=== PATIENT | male | born 1965 | race African-American/Black ===

== ENCOUNTER 2019-12-31 03:18 | Emergency (ER) | payer MEDICAID ==
[~2019-12-31] VITALS: Ht 180.3 cm; Wt 91.0 kg
[2019-12-31] MEDS ORDERED: ONDANSETRON HCL 4MG/2ML INJ IV STA (04:08)
[2019-12-31] MEDS ORDERED: SODIUM CHLORIDE 0.9% 1,000 ML IV ONE (04:08)
[2019-12-31 04:47] LABS: BASOPHILS % 1.2 % (0.0-2.0); EOSINOPHILS % 4.4 % (0.0-5.0); HEMATOCRIT. 43.9 % (42.0-52.0); HEMOGLOBIN. 14.8 g/dL (14.0-18.0); LYMPHOCYTES % 45.4 % (20.0-50.0); MEAN CORPUSCULAR HEMOGLOBIN 30.3 pg (28.0-32.0); MEAN CORPUSCULAR VOLUME 89.7 fL (80.0-94.0); MEAN PLATELET VOLUME 8.5 fl (7.4-10.4); PLATELET 245 x1000/uL (130-400); RED BLOOD CELL COUNT 4.89 mill/uL (4.7-6.1); RED CELL DISTRIBUTION WIDTH 13.6 % (11.6-14.6)
[2019-12-31 05:02] LABS: CHLORIDE 110 mEq/L (98-107)
[2019-12-31 05:06] LABS: ETHANOL BLOOD 114 mg/dL
[2019-12-31 05:23] LABS: *AMPHETAMINES SCREEN URINE PRESUMTIVE POSITIVE (NEGATIVE); *BARBITURATES SCREEN URINE NEGATIVE (NEGATIVE); *BENZODIAZEPINES SCREEN URINE NEGATIVE (NEGATIVE); *COCAINE SCREEN URINE PRESUMTIVE POSITIVE (NEGATIVE); METHADONE URINE SCREEN NEGATIVE (NEGATIVE); OPIATES URINE SCREEN NEGATIVE (NEGATIVE)
[2019-12-31 05:24] LABS: CANNABINOID URINE SCREEN PRESUMTIVE POSITIVE (NEGATIVE); PHENCYCLIDINE URINE SCREEN PRESUMTIVE POSITIVE (NEGATIVE)
[2019-12-31 07:32] VITALS: BP 126/72
== END 2019-12-31 08:01 | disposition home or self-care (01) ==
LOC: ER 03:18 → EDBD 03:18 → ER 08:01
DX: F15.10 Other stimulant abuse, uncomplicated (principal); F14.10 Cocaine abuse, uncomplicated; F12.10 Cannabis abuse, uncomplicated; F16.10 Hallucinogen abuse, uncomplicated; F10.129 Alcohol abuse with intoxication, unspecified; Y90.5 Blood alcohol level of 100-119 mg/100 ml
CPT/HCPCS: 36415; 70450; 71045; 80053; 80305; 80320; 82140; 85025; 93005; 96361; 96374; 99285; J2405; J7030; G0480